=== PATIENT | female | born 1990 | race Caucasian/White ===

== ENCOUNTER 2017-04-09 17:05 | Emergency (ER) | payer BC ==
[2017-04-09 17:25] VITALS: BP 154/87; PULSE 85; RESP 16; TEMP 98; O2SAT 99
[2017-04-09] MEDS ORDERED: Silver Sulfadiazine 1% Cream (20 gm) TOP STA (17:38)
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
[2017-04-09] MEDS ORDERED: Silver Sulfadiazine 1% CREAM (50 gm) ONE (17:56)
== END 2017-04-09 18:25 | disposition home or self-care (01) ==
LOC: H.ER 17:05
DX: T23.002A Burn of unspecified degree of left hand, unspecified site, initial encounter (principal)